=== PATIENT | male | born 1960 | race Two or more races ===

== ENCOUNTER 2016-09-08 17:18 | Emergency (ER) | payer MEDICAID ==
[~2016-09-08] VITALS: Ht 152.4 cm; Wt 52.2 kg
[2016-09-08 17:18] VITALS: BP 131/80
[2016-09-08] MEDS ORDERED: ACETAMINOPHEN 325 MG TABLET ONE (17:53)
[2016-09-08] MEDS ORDERED: ACETAMINOPHEN 325 MG TABLET PO ONE (18:00)
== END 2016-09-08 19:25 | disposition home or self-care (01) ==
LOC: ER 17:19
DX: M25.562 Pain in left knee (principal); M25.522 Pain in left elbow; V89.2XXA Person injured in unspecified motor-vehicle accident, traffic, initial encounter; Y92.488 Other paved roadways as the place of occurrence of the external cause; Y99.8 Other external cause status; Y93.55 Activity, bike riding
CPT/HCPCS: 73080; 73564; 99284; A4606; Z7610